=== PATIENT | female | born 1990 | race African-American/Black ===

== ENCOUNTER 2019-10-26 14:09 | Inpatient (IN) | payer SELFPAY ==
[~2019-10-26] VITALS: Ht 167.6 cm; Wt 83.5 kg
[2019-10-26 15:00] LABS: COLLECTION METHOD CATHETER
[2019-10-26 15:04] LABS: BASO # 0.1 (0.0-0.2); BASO % 0.6 % (0.0-2.0); EOS # 0.1 (0.0-0.7); EOS % 0.5 % (0-4.0); GRAN # 8.6 (1.4-6.5); GRAN % 73.8 % (42.2-75.2); HEMATOCRIT 41.9 % (37.0-47.0); HEMOGLOBIN 13.6 g/dl (12.5-16.0); LYMPH # 2.1 (1.2-3.4); LYMPH % 18.3 % (20.0-51.0); MEAN CELL VOLUME 92 fl (80.0-100.0); MEAN CORPUSCULAR HEMOGLOBIN 30 pg (27.0-31.0); MEAN CORPUSCULAR HGB CONC 33 g/dl (33.0-37.0); MEAN PLATELET VOLUME 9.4 fl (7.4-10.4); MONO # 0.7 (0.1-0.6); MONO % 6.2 % (1.7-9.3); PLATELET COUNT 423 K/mm3 (130-400); RED BLOOD COUNT 4.55 M/mm3 (4.10-5.30); REDCELL DISTRIBUTION WIDTH-CV 13.4 % (11.5-14.5)
[2019-10-26 15:10] LABS: PH 7 (5-8); SQUAMOUS EPITHELIAL 0-2 /hpf; URINE APPEARANCE Clear; URINE BACTERIA None Seen /hpf; URINE BILIRUBIN Negative (NEGATIVE); URINE BLOOD 1+ (NEGATIVE); URINE COLOR Yellow; URINE GLUCOSE Negative (NEGATIVE); URINE KETONE Negative (NEGATIVE); URINE LEUKOCYTE ESTERASE Negative (NEGATIVE); URINE NITRATE Negative (NEGATIVE); URINE PROTEIN(semi-quant) Negative (NEGATIVE); URINE RBC 0-2 /hpf; URINE UROBILINOGEN Negative (NEGATIVE)
[2019-10-26 15:15] LABS: ALANINE AMINOTRANSFERASE 13 U/L (4-34); ALBUMIN 4.6 gm/dL (3.5-5.0); ALKALINE PHOSPHATASE 101 U/L (50-136); ANION GAP 12 mmol/L (7-16); AST,SGOT 23 U/L (15-37); BILIRUBIN,TOTAL 0.5 mg/dL (0.0-1.0); BLOOD UREA NITROGEN 4 mg/dL (7-17); CALCIUM 9.7 mg/dL (8.4-10.2); CARBON DIOXIDE 21 mmol/L (22-30); CHLORIDE 102 mmol/L (98-107); CREATINE KINASE 81 U/L (30-135); CREATININE, serum 0.88 (0.52-1.25); GLUCOSE 164 mg/dL (74-106); MAGNESIUM 1.8 mg/dL (1.6-2.3); PHOSPHOROUS 1.4 mg/dL (2.5-4.5); POTASSIUM 3.1 mmol/L (3.4-5.0); SALICYLATE 1.1 mg/dL; SODIUM 136 mmol/L (137-145); TOTAL PROTEIN 8.1 gm/dL (6.4-8.2)
[2019-10-26 15:21] LABS: ACETAMINOPHEN < 10 ug/mL (10-30); ALCOHOL(ethanol),MEDICAL < 10 mg/dL; TRICYCLIC ANTIDEPRESS URINE POSITIVE
[2019-10-26 15:29] LABS: ARTERIAL BLD GAS O2 SATURATION 96.1 % (92-100); ARTERIAL BLD GAS TCO2 CT 19.7; ARTERIAL BLOOD GAS BASE EXCESS -4.5 (-2-2); ARTERIAL BLOOD GAS HCO3 18.7 meq/L (22-26); ARTERIAL BLOOD GAS PCO2 29.7 mmHg (35-45); ARTERIAL BLOOD GAS PO2 77.6 mmHg (80-100); ARTERIAL BLOOD GAS pH 7.42 (7.35-7.45)
--- NOTE | 2019-10-26 18:30 | NUR ---
Pt up to room 310, escorted via stretcher by ER RNs. Pt is minimally responsive to verbal stimuli or sternal rub. Unable to obtain any information, complete assessment, med rec, or allergies. Pt on tele running tachy, on room air, breathing is even and unlabored, satting at 96%. Attempted a set of vitals, pt rolling around in bed. Unable to have any conversation at this time. Report given to ELAINA Guzman. ELAINA Call charge has discussed with Dr. Arzate about patients current status.
[2019-10-26 19:02] VITALS: BP 138/86; PULSE 126
[2019-10-26 19:08] VITALS: BP 119/72; PULSE 126; TEMP 98.7
--- NOTE | 2019-10-26 19:30 | NUR ---
Spoke with Dr. Arzate regarding patient be unresponsive and heart rate sinus tachycardia in the 140s. Patient had an order for 1 L NS boluses every hour. Order to give 1 L bolus, then change to NS at 125 ml/hr after that. Patient continues to be unresponsive. Did open eys with sternal rub, but closed again. No verbal response from patient. Unable to follow directions. Unable to answer questions. Peripheral IV to left wrist. Site without redness, warmth, swelling, and pain. Fluids started and wrapped site with coban for protection. LS CTA. Respirations even and unlabored. HR tachy. Telemetry in place: sinus tachycardia. Capillary refill less than 3 seconds. Non-tenting skin turgor. BSAx4. Abdomen soft and non-tender. No edema. Patient incontinent of bladder. Perineal care provided and placed depend for dignity and skin protection. High fall risk precautions in place.
[2019-10-26 23:02] VITALS: BP 107/70; PULSE 106; TEMP 97.5
[2019-10-27] VITALS (7 sets, daily range): BP systolic 95–133; BP diastolic 51–82; PULSE 82–120; TEMP 98.2–100
--- NOTE | 2019-10-27 02:12 | NUR ---
Patient had been mostly unresponsive until aproximately 0130. At that time, [employer] and this nurse went in to change patient due to urinary incontinence. Called out patient's name, and patient did open eyes. Started flailing arms around. Calmly talked to patient and oriented patient to where she was and why she was here. Patient got up, stating that she had to go to the bathroom. Trying to push away at staff. Very unsteady on feet. Explained that staff was there to help her and make sure she wouldn't fall. Trying to talk to staff, but speach is unclear and slurred most of the time. When asked direct questions like year, month, what state she is in, patient was able to answer correctly. Unable to say why she is in the hospital. Trying to take out IV and not keeping telemetry on. This nurse and [employer] tried to redirect and calm patient for about 20 minutes but were ineffective. Call placed to Dr. Arzate at [phone] and updated on patient. Patient pacing in room, unable to state what she is looking for. Moving computer, messing with cords, etc. New order for 1 mg Ativan IV now, one time order. Patient given medication around 0200 per order. Patient is laying in bed at this time. High fall risk precautions remain in place.
--- NOTE | 2019-10-27 05:37 | NUR ---
Patient continues to get up and down. High fall risk precautions remain in place. Continues to be confused. Able to tell me her name, year, month, unable to say where she is. Believes she is in [place]. Speach continues to be slurred and hard to understand. Continues to be drowsy.
[2019-10-27 09:37] LABS: HEMATOCRIT 38.3 % (37.0-47.0); HEMOGLOBIN 12.5 g/dl (12.5-16.0); MEAN CELL VOLUME 93 fl (80.0-100.0); MEAN CORPUSCULAR HEMOGLOBIN 30 pg (27.0-31.0); MEAN CORPUSCULAR HGB CONC 33 g/dl (33.0-37.0); MEAN PLATELET VOLUME 8.7 fl (7.4-10.4); PLATELET COUNT 377 K/mm3 (130-400); RED BLOOD COUNT 4.12 M/mm3 (4.10-5.30)
[2019-10-27 09:55] LABS: CALCIUM 9.1 mg/dL (8.4-10.2); CREATININE, serum 1.08 (0.52-1.25); PHOSPHOROUS 2.2 mg/dL (2.5-4.5)
--- NOTE | 2019-10-27 09:56 | NUR ---
PATIENT AWAKE. AMBULATED TO BATHROOM. UNSTEADY GAIT. RESPONSES WITH YES AND NO. SPEECH UNINTELLIGIBLE. DOES FLOOW SIMPLE COMMANDS WITH CUEING. SEE FLOW SHEET FOR FVS OBTAINED. DR CONTRERAS AWARE OF ELEVATED WBC AND TACHYCARDIA.
[2019-10-27 10:16] LABS: BAND 1 % (0-10); EOSINOPHIL 1 % (0-4); LYMPHOCYTE 5 % (20.0-51.0); METAMYELOCYTE 2 % (0-0); NEUTROPHILS 90 % (42.0-75.2)
[2019-10-27 10:17] LABS: PLATELET ESTIMATE NORMAL (NORMAL)
--- NOTE | 2019-10-27 14:55 | NUR ---
SW met with patient from door. Patient reports that she she resides in [facility], alone. Patient reports that she was dropped out by random men. Patient reports that her brother could transport her home but does not have his phone number. Patient reports that she obtains her medications from the [facility]. Patient reports that she remember being in emergency department but nothing else. Patient shares that she ended up her because someone owed her money. Patient then states she does not have any blood relatives locally. Patient stated that she took 12-13 percocets and then trailed off on sentence. Patient's story is contradictory to other reports that she has given and received from nurse. Patient plans to go home upon DC>
--- NOTE | 2019-10-27 20:30 | NUR ---
Patient assessed. Reported level 7 headache. No PRN medications on SEP. Call placed to Dr. Arzate. New order for Acetaminophen 650 mg po Q6H PRN for pain. Given as requested by patient. Peripheral IV to left wrist, NS running at 125 ml/hr. Denies SOB and dyspnea. LS CTA. Respirations even and unlabored. HRR. Capillary refill less than 3 seconds. Non-tenting skin turgor. BSAx4. Abdomen soft and non-tender. No edema. Voices no questions, needs, or concerns at this time. Resting in bed with call light within reach.
[2019-10-28 04:19] VITALS: BP 122/86; PULSE 89; TEMP 98.7
--- NOTE | 2019-10-28 05:03 | NUR ---
Patient's highest temp during the night was 100.0. Patient had also complained of headache at this time, and received PRN APAP around 2009. Patient has not had any further complaints of pain or discomfort. Most recent temperature was 98.7. Has been alert and oriented x 4 throughout the night. Pleasant and cooperative with cares. Awakens easily. Did eat snack during the night as well. High fall risk precautions remain in place. Resting in bed with call light within reach.
[2019-10-28 06:19] LABS: BASO % 0.3 % (0.0-2.0); EOS # 0.3 (0.0-0.7); EOS % 1.9 % (0-4.0); GRAN # 9.8 (1.4-6.5); GRAN % 75.2 % (42.2-75.2); HEMOGLOBIN 11.2 g/dl (12.5-16.0); LYMPH # 2.4 (1.2-3.4); LYMPH % 18.3 % (20.0-51.0); MEAN CELL VOLUME 95 fl (80.0-100.0); MEAN CORPUSCULAR HEMOGLOBIN 30 pg (27.0-31.0); MEAN CORPUSCULAR HGB CONC 32 g/dl (33.0-37.0); MEAN PLATELET VOLUME 9.4 fl (7.4-10.4); MONO # 0.5 (0.1-0.6); MONO % 3.8 % (1.7-9.3); PLATELET COUNT 349 K/mm3 (130-400); RED BLOOD COUNT 3.73 M/mm3 (4.10-5.30); REDCELL DISTRIBUTION WIDTH-CV 14.3 % (11.5-14.5)
[2019-10-28 06:24] LABS: HEMATOCRIT 35.4 % (37.0-47.0)
[2019-10-28 06:29] LABS: CALCIUM 8.6 mg/dL (8.4-10.2); CREATININE, serum 1.13 (0.52-1.25); MAGNESIUM 1.8 mg/dL (1.6-2.3); POTASSIUM 3.7 mmol/L (3.4-5.0)
[2019-10-28 07:58] VITALS: BP 134/92; PULSE 98; TEMP 98.7
--- NOTE | 2019-10-28 07:59 | NUR ---
DAVID NOTE: PT AOX4. STEADY INDEPENDENT AMBULATION. STATES GENERALIZED BODY SCHES, TYLENOL GIVEN. DENIES CP, HESS, VISION CHANGED, PALPITATIONS, ANXIETY, STATES MILD SOB WITH AMBULATION. LCTA.IVF INFUSING
--- NOTE | 2019-10-28 10:45 | NUR ---
discharge instructions and drug cessation reviewed and discussed with pt. awaiting ride
== END 2019-10-28 10:45 | disposition home or self-care (01) | DRG 917 ==
LOC: COL.ER 14:09 → MEDICAL 15:29 → COL.ER 15:29 → MEDICAL 10-28 10:45
PROVIDERS: Emergency Medicine; Internal Medicine; Physician Assistant
DX: T43.621A Poisoning by amphetamines, accidental (unintentional), initial encounter (principal); G92 Toxic encephalopathy; E87.2 Acidosis; T40.5X1A Poisoning by cocaine, accidental (unintentional), initial encounter; T40.7X1A Poisoning by cannabis (derivatives), accidental (unintentional), initial encounter; T43.011A Poisoning by tricyclic antidepressants, accidental (unintentional), initial encounter; E87.6 Hypokalemia; E83.39 Other disorders of phosphorus metabolism; D47.3 Essential (hemorrhagic) thrombocythemia; R73.9 Hyperglycemia, unspecified; D72.829 Elevated white blood cell count, unspecified
CPT/HCPCS: 99223-AI; 99233-AI; 99239; A4216; J0696; J2060; J3480; J7030; J7050; J7120

== ENCOUNTER 2020-03-21 10:00 | Emergency (ER) | payer SELFPAY ==
[~2020-03-21] VITALS: Ht 167.6 cm; Wt 89.1 kg
[2020-03-21 10:08] VITALS: BP 116/80; TEMP 98.1
[2020-03-21] MEDS ORDERED: PREDNISONE20 MG PO (10:42)
[2020-03-21 11:20] VITALS: PULSE 73
== END 2020-03-21 11:20 | disposition home or self-care (01) ==
LOC: COL.ER 10:00
DX: J45.901 Unspecified asthma with (acute) exacerbation (principal); R19.7 Diarrhea, unspecified; M79.10 Myalgia, unspecified site; R11.2 Nausea with vomiting, unspecified; Z87.891 Personal history of nicotine dependence; Z79.51 Long term (current) use of inhaled steroids
CPT/HCPCS: J7512

== ENCOUNTER 2021-04-13 08:41 | Emergency (ER) | payer OTHER ==
[~2021-04-13 08:41] MED LIST: PREDNISONE20 MG PO
[2021-04-13 09:03] VITALS: BP 108/74; PULSE 82; TEMP 97.9
== END 2021-04-13 11:47 | disposition left against medical advice (07) ==
LOC: COL.ER 08:41
DX: B88.1 Tungiasis [sandflea infestation] (principal); F14.10 Cocaine abuse, uncomplicated; F17.200 Nicotine dependence, unspecified, uncomplicated

== ENCOUNTER 2021-08-02 12:57 | Emergency (ER) | payer OTHER ==
[~2021-08-02] VITALS: Ht 177.8 cm; Wt 72.7 kg
[2021-08-02 14:22] VITALS: TEMP 98.4
[2021-08-02] MEDS ORDERED: RISPERDAL4 MG PO (14:24)
[2021-08-02 15:16] VITALS: BP 130/90; PULSE 72
== END 2021-08-02 15:15 | disposition home or self-care (01) ==
LOC: COL.ER 12:57
DX: H92.02 Otalgia, left ear (principal)

== ENCOUNTER 2022-01-12 19:20 | Emergency (ER) | payer OTHER ==
[~2022-01-12] VITALS: Ht 177.8 cm; Wt 81.8 kg
[~2022-01-12 19:20] MED LIST changes: +RISPERDAL4 MG PO
[2022-01-12 23:00] VITALS: BP 110/65; PULSE 73; TEMP 98.5
== END 2022-01-12 23:00 | disposition home or self-care (01) ==
LOC: COL.ER 19:20
DX: S59.911A Unspecified injury of right forearm, initial encounter (principal); Z28.310 Unvaccinated for COVID-19; X58.XXXA Exposure to other specified factors, initial encounter

== ENCOUNTER 2022-10-18 10:33 | Emergency (ER) | payer OTHER ==
[~2022-10-18] VITALS: Ht 177.8 cm; Wt 88.6 kg
[2022-10-18 11:00] VITALS: TEMP 98.4
[2022-10-18 11:17] LABS: COLLECTION METHOD CLEAN CATCH
[2022-10-18 11:23] LABS: BASO # 0.1 K/mm3 (0.0-0.2); EOS # 0.2 K/mm3 (0.0-0.7); EOS % 3.7 % (0.0-4.0); GRAN # 2.6 K/mm3 (1.4-6.5); GRAN % 50.4 % (42.2-75.2); HEMATOCRIT 37.3 % (37.0-47.0); HEMOGLOBIN 11.7 g/dl (12.5-16.0); LYMPH # 1.8 K/mm3 (1.2-3.4); LYMPH % 35.9 % (20.0-51.0); MEAN CELL VOLUME 94 fl (80.0-100.0); MEAN CORPUSCULAR HEMOGLOBIN 29 pg (27-31); MEAN CORPUSCULAR HGB CONC 31 g/dl (33.0-37.0); MEAN PLATELET VOLUME 9.1 fl (7.4-10.4); MONO # 0.5 K/mm3 (0.1-0.6); MONO % 8.8 % (1.7-9.3); PLATELET COUNT 414 K/mm3 (130-400); RED BLOOD COUNT 3.99 M/mm3 (4.10-5.30); REDCELL DISTRIBUTION WIDTH-CV 13.2 % (11.5-14.5)
[2022-10-18 11:35] LABS: MUCOUS Present (NOT PRESENT); SQUAMOUS EPITHELIAL 0-2 /hpf (0-10); URINE BACTERIA None Seen /hpf (NONE SEEN); URINE RBC 0-2 /hpf (0-2)
[2022-10-18 11:39] LABS: URINE APPEARANCE Clear (CLEAR/HAZY); URINE BLOOD TRACE-LYSED (NEGATIVE); URINE COLOR Yellow (YELLOW); URINE GLUCOSE Negative (NEGATIVE); URINE KETONE Negative (NEGATIVE); URINE NITRATE Negative (NEGATIVE); URINE PROTEIN(semi-quant) Negative (NEGATIVE); URINE UROBILINOGEN 0.2 E.U/dL (0.2-1.0)
[2022-10-18 11:41] LABS: ALANINE AMINOTRANSFERASE 13 U/L (0-55); ALBUMIN 3.9 gm/dL (3.5-5.0); ALKALINE PHOSPHATASE 75 U/L (40-150); ANION GAP 6 mmol/L (7-16); AST,SGOT 17 U/L (5-34); BILIRUBIN,TOTAL 0.5 mg/dL (0.2-1.2); BLOOD UREA NITROGEN 9 mg/dL (7-19); CALCIUM 9.3 mg/dL (8.4-10.2); CARBON DIOXIDE 23 mmol/L (22-29); CHLORIDE 111 mmol/L (98-107); CREATININE, serum 0.91 mg/dL (0.57-1.11); GLUCOSE 76 mg/dL (70-99); POTASSIUM 4.4 mmol/L (3.5-4.5); SODIUM 140 mmol/L (136-145); TOTAL PROTEIN 7.3 gm/dL (6.2-8.1)
[2022-10-18 11:49] LABS: TROPONIN-I < 0.010 ng/mL (0.00-0.033)
[2022-10-18 13:59] VITALS: BP 119/85; PULSE 68
== END 2022-10-18 14:00 | disposition home or self-care (01) ==
LOC: COL.ER 10:33
PROVIDERS: Nurse Practitioner
DX: R07.89 Other chest pain (principal); R10.13 Epigastric pain; Z28.310 Unvaccinated for COVID-19
CPT/HCPCS: J7030

== ENCOUNTER → 2022-11-04 | Outpatient (CLI) | payer OTHER | LOC: MC.RAD 09:04 | DX: N64.4 Mastodynia (principal); Z85.3 Personal history of malignant neoplasm of breast ==

== ENCOUNTER 2024-03-30 17:21 | Emergency (ER) | payer OTHER ==
[~2024-03-30] VITALS: Ht 177.8 cm; Wt 86.4 kg
[2024-03-30 17:35] VITALS: TEMP 98.2
[2024-03-30] MEDS ORDERED: Albuterol/Ipratropium 3 MG-0.5 MG/3 ML Neb Soln IH ONE (19:45)
[2024-03-30] MEDS ORDERED: predniSONE 20 MG TAB PO ONE (19:45)
[2024-03-30] MEDS ORDERED: PREDNISONE20 MG PO (21:33)
[2024-03-30 21:53] VITALS: BP 128/109; PULSE 68
== END 2024-03-30 21:57 | disposition home or self-care (01) ==
LOC: COL.ER 17:21
DX: J45.901 Unspecified asthma with (acute) exacerbation (principal)
CPT/HCPCS: J7512